=== PATIENT | female | born 1970 | race Caucasian/White ===

== ENCOUNTER 2025-03-05 14:00 | Emergency (ER) | payer OTHER, SELFPAY ==
[2025-03-05 14:01] VITALS: BP 167/101; PULSE 81; RESP 20; TEMP 36.1; O2SAT 100
--- NOTE | 2025-03-05 14:21 | RAD_ITS ---
EXAM: XR Left Knee Complete, 4 or More Views CLINICAL INDICATION: INJURY TECHNIQUE: Four or more views of the left knee. COMPARISON: No relevant prior studies available. FINDINGS: BONES/JOINTS: Unremarkable. No acute fracture. No dislocation. SOFT TISSUES: Unremarkable. RAD/Knee 4 or More Views IMPRESSION: No acute fracture. Reading [facility]
[2025-03-05] MEDS: HYDROcodone Bitartrate/Apap 5/325 Tablet PO (14:33)
[2025-03-05] MEDS: Naproxen 500 MG Tablet PO (14:33)
[2025-03-05] MEDS: Ondansetron ODT 4 MG Tablet 8 MG PO (14:52)
--- NOTE | 2025-03-05 15:10 | EDS_ITS ---
HPI History of Present Illness Chief Complaint: Lower Extremity Injury Informant: patient Narrative Narrative: 54-year-old female injured her left knee today. She states she stepped down from a curb and as she planted her left foot down she suddenly heard and felt a pop in her left knee followed by pain that has become quite severe. She cannot put any weight on it because of the pain. It has swelled. She is on no anticoagulants. No major prior issues with this knee. No other injury or fall. PFSH PFSH Home Medications ?Medication ?Instructions ?Recorded ?Last Taken ?Type hydrocodone-acetaminophen 5-325mg 1 tab PO Q4H PRN PRN Pain 2 days 03/05/25 Unknown Rx 5mg-325mg #10 TABLETS Allergy/AdvReac Type Severity Reaction Status Date / Time phenobarbital Allergy Severe Other Verified 03/05/25 14:01 Latex, Natural Rubber Allergy Mild Rash Verified 03/05/25 14:01 Penicillins Allergy Mild Hives Verified 03/05/25 14:01 Social History Smoking Status: Never smoker ROS ROS ED Constitutional Constitutional ED: Denies chills or fever(s) Musculoskeletal Musculoskeletal: Reports extremity pain; Denies neck pain Integumentary Denies Abrasions, rash or wounds Neurologic Neurologic: Denies paresthesias or weakness EXAM Physical Exam Const Vital Signs: 03/05/25 14:01 Temperature 97 F L Temperature Source Temporal Pulse Rate 81 Respiratory Rate 20 H Blood Pressure 167/101 H Blood Pressure Mean 123 Pulse Ox 100 Oxygen Delivery Method Room Air Positive well nourished and well developed General Appearance ED: well developed and NAD Neck full ROM and supple Back/Spine normal ROM and normal to inspection Extremity Extremity Narrative: Left knee without bony tenderness. There is an effusion and there is tenderness when gently palpating it. Extensor mechanism is intact. She can bend it but limited at extremes due to pain and the swelling. Ligaments are all stable with short endpoints, she has significant discomfort with Dannie/anterior drawer, suggesting possible ACL injury. Neuro oriented x3, no focal motor deficits and no sensory deficits noted Sensorium / Orientation: alert Psych mental status grossly normal and thought process normal Skin no wounds Rashes: no rashes MDM MDM MDM Narrative Medical decision making narrative: 4 view x-rays of the left knee on my interpretation show no acute bony fracture. Radiology in agreement. As I discussed with her, this does not rule out soft tissue injury such as an ACL or meniscus injury. She was given NSAID, [place], ice pack, and Zofran since she was very nauseated from the pain. We will give her crutches, an Cipriano wrap, and have her follow-up with orthopedics as an outpatient. Radiography Diagnostic Testing: Clinical Impression(s) from Imaging Studies Knee X-Ray 03/05/25 14:21 IMPRESSION: No acute fracture. Reading Location: [facility] Discharge Plan Triage Chief Complaint: Lower Extremity Injury ED Provider: Ivan Sorenson Dx/Rx/DC Orders Clinical Impression: Sprain of anterior cruciate ligament of left knee, initial encounter Instructions: ACL Injury Tx Prescriptions: New hydrocodone-acetaminophen 5-325 mg tablet 1 tab PO Q4H PRN PRN (Reason: Pain) 2 Days Qty: 10 0RF Primary Care Provider: Laxmi Elliott NP Referrals: Kai Carrillo MD [Med Staff - Active Staff] - As soon as possible Print Language: Burkinan Disposition Disposition: Home, Self Care
[2025-03-05 15:32] VITALS: BP 144/86; PULSE 74; RESP 16; TEMP 36.6; O2SAT 99
== END 2025-03-05 15:33 | disposition home or self-care (01) ==
PROVIDERS: Emergency Provider Emergency Medicine; PCP Nurse Practitioner Family; Visit Provider Emergency Medicine
DX: S83.512A Sprain of anterior cruciate ligament of left knee, initial encounter (principal); X58.XXXA Exposure to other specified factors, initial encounter
CPT/HCPCS: 73564; 99283